=== PATIENT | female | born 2005 | race Caucasian/White ===

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

== ENCOUNTER 2024-10-10 09:56 | Outpatient (CLI) | payer OTHER, SELFPAY ==
--- NOTE | ~2024-10-10 | XR_ITS ---
XR abdomen/kub 1V 10/10/2024 10:27 INDICATION: Ureteral stone TECHNIQUE: KUB COMPARISON: No prior studies for comparison. FINDINGS: Bowel gas pattern is normal. There is no evidence of free air, mass, organomegaly, ascites or obstruction. There is a small right renal stone. There is also a calcification at the L2 level on the right, likely a UPJ stone. There are pelvic phleboliths. The bones appear intact. IMPRESSION: 1: Right nephrolithiasis. Reviewed, dictated and finalized at location B. [employer] IMPRESSION: 1: Right nephrolithiasis.
--- OUTSIDE RECORDS SUMMARY | 2024-10-10 10:10 | XMS_ITS | Clinical Summary ---
Author Organization [facility] [place] [address] Address [address] [place] [address] Care Team Providers Care Felt Hanger Name Role Phone Ric Caraballo MD Primary Care Provider Allergies No known active allergies Medications ondansetron ODT (ZOFRAN-ODT) 8 mg disintegrating tablet Take 1 tablet (8 mg total) by mouth every 8 (eight) hours as needed for nausea or vomiting 30 tablet 4 Active HYDROcodone-acetami nophen (NORCO) 5-325 mg per tabletIndications:P ain Take 1 tablet by mouth every 6 (six) hours as needed for pain 15 tablet 5 Active tamsulosin (FLOMAX) 0.4 mg extended release capsule Take 1 capsule (0.4 mg total) by mouth daily 7 capsule 5 Active Active Problems No known active problems Encounters Date Type Department Care Team Description 10/07/2024 10:10 AM TECHNOLOGY ENGINEER - 10/07/2024 1:55 PM [facility] Emergency [facility] Emergency Department [address] [place] [address] Jovan Espana MD Ureterolithiasis (Primary Dx) Discharge Disposition: Discharge to home or self care from Last 3 Months Social History Tobacco Use Types Packs/Day Years Used Date Smoking Tobacco: Never Assessed Personal Safety Answer Date Recorded Have you ever been in or are you currently in a harmful physical or emotional relationship or is someone making you feel afraid or unsafe? Denies 10/07/2024 Comments No Sex and Gender Information Value Date Recorded Sex Assigned at Not on file Legal Sex Female 7:15 PM TECHNOLOGY ENGINEER Gender Identity Not on file Sexual Orientation Not on file Obstetrics History Last Filed Vital Signs Vital Sign Reading Time Taken Comments Blood Pressure 126/65 10/07/2024 1:45 PM TECHNOLOGY ENGINEER Pulse 89 10/07/2024 9:09 AM TECHNOLOGY ENGINEER Temperature 36.1 C (96.9 F) 10/07/2024 9:09 AM TECHNOLOGY ENGINEER Respiratory Rate 16 10/07/2024 1:45 PM TECHNOLOGY ENGINEER Oxygen Saturation 100% 10/07/2024 9:09 AM TECHNOLOGY ENGINEER Inhaled Oxygen Concentration - - Weight 90.7 kg (200 lb) 10/07/2024 9:09 AM TECHNOLOGY ENGINEER Height 165.1 cm (5' 5 ) 10/07/2024 9:09 AM TECHNOLOGY ENGINEER Body Mass Index 33.28 10/07/2024 9:09 AM TECHNOLOGY ENGINEER Plan of Treatment Health Maintenance Due Date Last Done Comments Depression Screening 2004 Hepatitis C Screening 2004 DTaP/Tdap/Td Vaccine (6 - Tdap) 2015 01/09/2010, 12/17/2005, 2004, Additional history exists HPV Vaccines (2 - 2-dose series) 08/17/2019 02/15/2019 Meningococcal B Vaccine (1 of 2 - Standard) 2020 Regular Well Visit/Exam 18-64 2022 Covid-19 Vaccine ( - season) 2024 10/24/2020 Influenza Vaccine (#1) 2024 Hepatitis B Screening Completed 2004 , 2004, 2004, Additional history exists Pneumococcal vaccine <65 Completed 005, 2004, 2004, Additional history exists Varicella Vaccines Completed 01/09/2010, 05/18/2005 Meningococcal Vaccine Aged Out No radha arlen eligible based on patient's age to complete this topic Procedures Procedure Name Priority Date/Time Associated Diagnosis Comments CT KUB STONE WO CONTRAST ED 10/07/2024 12:16 PM TECHNOLOGY ENGINEER EGFR STAT 10/07/2024 11:14 AM TECHNOLOGY ENGINEER DIFFERENTIAL AUTO STAT 10/07/2024 11: 14 AM TECHNOLOGY ENGINEER LIPASE STAT 10/07/2024 11:14 AM TECHNOLOGY ENGINEER COMPREHENSIVE METABOLIC PANEL STAT 10/07/2024 11:14 AM TECHNOLOGY ENGINEER CBC WITH AUTO DIFFERENTIAL STAT 10/07/2024 11:14 AM TECHNOLOGY ENGINEER POCT HCG, URINE Routine 10/07/2024 11:10 AM TECHNOLOGY ENGINEER URINALYSIS, MICROSCOPIC ONLY STAT 10/07/2024 11:08 AM TECHNOLOGY ENGINEER URINALYSIS AND REFLEX TO MICROSCOPIC AND CULTURE STAT 10/07/2024 11:08 AM TECHNOLOGY ENGINEER from Last 3 Months Results * CT KUB Stone WO Contrast (10/07/2024 12:16 PM TECHNOLOGY ENGINEER) Anatomical Region Laterality Modality Abdomen N/A Computed Tomogra phy 10/07/2024 1:06 PM TECHNOLOGY ENGINEER Narrative 10/07/2024 1:11 PM TECHNOLOGY ENGINEER EXAM DESCRIPTION: CT KUB STONE WO CONTRAST REASON FOR STUDY: Urolithiasis, symptomatic Right flank pain and difficulty urinating started this morning, hx of stones. TECHNIQUE: CT scan of the abdomen and pelvis performed without intravenous and without oral contrast using helical scanning technique. Reconstructed coronal and sagittal MPR images reviewed. All images stored on PACS. Automated exposure control was used as a dose optimization technique for this examination. COMPARISON: 03/08/2023, 04/07/2020 FINDINGS: The sensitivity for detection of visceral lesions is diminished without the use of intravenous contrast. LOWER CHEST: Mild scattered subsegmental atelectasis. No pleural effusion. Imaged portions of the heart and esophagus are within normal limits. LIVER: Normal size. No identified cystic or solid masses. GALLBLADDER: Normal. BILE DUCTS: No intrahepatic or extrahepatic ductal dilatation. SPLEEN: Normal size. No focal lesions. PANCREAS: No identified cystic or solid masses. No significant calcifications. No adjacent inflammation or peripancreatic fluid collections. Pancreatic duct not dilated. ADRENALS: Normal. KIDNEYS/URINARY TRACT: No identified significant cystic or solid masses. Mild right hydroureteronephrosis with a 3 mm calculus in the proximal right ureter, positioned just distal to the ureteropelvic junction. There is a nonobstructive calculus in the upper pole of the left kidney measuring 3 mm. There is mild right perinephric and proximal right periureteral fat stranding due to increased intrarenal pressures and recent calculus passage. The urinary bladder is normal. GI: The stomach is normal. The small bowel and colon are normal in course and caliber with no evidence of obstruction or inflammation. The appendix is normal. PERITONEUM: No ascites or free air. Lymphadenopathy. RETROPERITONEUM: No mass or adenopathy. REPRODUCTIVE: No significant abnormality. VASCULATURE: No abdominal aortic aneurysm. MUSCULOSKELETAL: No acute fractures or aggressive osseous lesions. IMPRESSION: 1. Mild right hydroureteronephrosis with a 3 mm calculus in the proximal right ureter, positioned just distal to the ureteropelvic junction. 2. Nonobstructive calculus in the upper pole of the left kidney measuring 3 mm. THIS IS AN ELECTRONICALLY VERIFIED FINAL REPORT 10/07/2024 1:11 PM - Electronically signed by Fide Segal M.D. AT: AT Report ID: [id number] Reading Location: [id number] Procedure Note Fide Segal MD - 10/07/2024 EXAM DESCRIPTION: CT KUB STONE WO CONTRAST REASON FOR STUDY: Urolithiasis, symptomatic Right flank pain and difficulty urinating started this morning, hx ofstones. TECHNIQUE: CT scan of the abdomen and pelvis performed without intravenousand without oral contrast using helical scanning technique. Reconstructed coronal and sagittal MPR images reviewed. All images stored on PACS.Automated exposure control was used as a dose optimization technique for this examination. COMPARISON: 03/08/2023, 04/07/2020 FINDINGS: The sensitivity for detection of visceral lesions is diminished withoutthe use of intravenous contrast. LOWER CHEST: Mild scattered subsegmental atelectasis. No pleuraleffusion. Imaged portions of the heart and esophagus are within normal limits. LIVER: Normal size. No identified cystic or solid masses. GALLBLADDER: Normal. BILE DUCTS: No intrahepatic or extrahepatic ductal dilatation. SPLEEN: Normal size. No focal lesions. PANCREAS: No identified cystic or solid masses. No significant calcifications. No adjacent inflammation or peripancreatic fluidcollections. Pancreatic duct not dilated. ADRENALS: Normal. KIDNEYS/URINARY TRACT: No identified significant cystic or solid masses. Mild right hydroureteronephrosis with a 3 mm calculus in the proximalright ureter, positioned just distal to the ureteropelvic junction. There is a nonobstructive calculus in the upper pole of the left kidney measuring 3mm. There is mild right perinephric and proximal right periureteral fatstranding due to increased intrarenal pressures and recent calculus passage. The urinary bladder is normal. GI: The stomach is normal. The small bowel and colon are normal incourse and caliber with no evidence of obstruction or inflammation. The appendixis normal. PERITONEUM: No ascites or free air. Lymphadenopathy. RETROPERITONEUM: No mass or adenopathy. REPRODUCTIVE: No significant abnormality. VASCULATURE: No abdominal aortic aneurysm. MUSCULOSKELETAL: No acute fractures or aggressive osseous lesions. IMPRESSION: 1. Mild right hydroureteronephrosis with a 3 mm calculus in the proximal right ureter, positioned just distal to the ureteropelvic junction. 2. Nonobstructive calculus in the upper pole of the left kidney measuring3 mm. THIS IS AN ELECTRONICALLY VERIFIED FINAL REPORT 10/07/2024 1:11 PM - Electronically signed by Fide Segal M.D. AT: AT Report ID: [id number] Reading Location: [place] [address] Jovan Espana MD [facility] [place] CT PROCEDURES Final Result * eGFR (10/07/2024 11:14 AM TECHNOLOGY ENGINEER) eGFR >90 >=60 mL/min/1. 73 m2 Comment: Interpretive Data Reference Interval Normal >/= 90 mL/min/1.73m2 Mildly decreased* 60 - 89 mL/min/1.73m2 Mildly to moderately decreased 45 - 59 mL/min/1.73m2 Moderately to severely decreased 30 - 44 mL/min/1.73m2 Severely decreased 15 - 29 mL/min/1.73m2 Kidney Failure < 15 mL/min/1.73m2 *Relative to young adult level Estimated glomerular filtration rate is determined by the 2020 CKD-EPI equation recommended by the National Kidney Foundation (A Unifying Approach to GFR Estimation: Recommendations of the NKF-ASK Task Force on Reassessing the Inclusion of Race in Diagnosing Kidney Disease, JASN 2020). The CKD-EPI equation should not be used for patients with unstable renal function and has not been validated in children and those over 70. Current interpretive data was last reviewed 2021. Blood 10/07/2024 11:1 4 AM TECHNOLOGY ENGINEER 10/07/2024 11:17 AM TECHNOLOGY ENGINEER us Boris Doan MD LAB BLOOD ORDERABLE S Final Result [facility] ([place]) 1 [facility] [place] [address] * (ABNORMAL) Differential, auto (10/07/2024 11:14 AM TECHNOLOGY ENGINEER) Neutrophil abs 12.5(H) 1.5 - 6.5 K/cumm Imm gran abs 0.1 0.0 - 0.1 K/cumm [facility] ([place]) Lymphocyte abs 1.0 0.8 - 3.3 K/cumm [facility] ([place]) Monocyte abs 0.4 0.2 - 0.8 K/cumm [facility] ([place]) Eosinophil abs 0.0 0.0 - 0.5 K/cumm [facility] ([place]) Basophil abs 0.0 0.0 - 0.1 K/cumm [facility] ([place]) Neutrophil pct 89.2 % [facility] ([place]) Comment: Interpretive Data Percent cell count reference ranges are not reported, since discordance with absolute values may lead to misinterpretation of CBC data. Current Interpretive Data was last revised on 2017. Imm gran pct 0.4 % [facility] ([place]) Comment: Interpretive Data Percent cell count reference ranges are not reported, since discordance with absolute values may lead to misinterpretation of CBC data. Current Interpretive Data was last revised on 2017. Lymphocyte pct 7.2 % [facility] ([place]) Comment: Interpretive Data Percent cell count reference ranges are not reported, since discordance with absolute values may lead to misinterpretation of CBC data. Current Interpretive Data was last revised on 2017. Monocyte pct 2.8 % [facility] ([place]) Comment: Interpretive Data Percent cell count reference ranges are not reported, since discordance with absolute values may lead to misinterpretation of CBC data. Current Interpretive Data was last revised on 2017. Eosinophil pct 0.1 % [facility] ([place]) Comment: Interpretive Data Percent cell count reference ranges are not reported, since discordance with absolute values may lead to misinterpretation of CBC data. Current Interpretive Data was last revised on 2017. Basophil pct 0.3 % [facility] ([place]) Comment: Interpretive Data Percent cell count reference ranges are not reported, since discordance with absolute values may lead to misinterpretation of CBC data. Current Interpretive Data was last revised on 2017. Blood 10/07/2024 11:1 4 AM TECHNOLOGY ENGINEER 10/07/2024 11:17 AM TECHNOLOGY ENGINEER us Boris Doan MD LAB BLOOD ORDERABLE S Final Result [facility] ([place]) 1 [facility] [place] [address] * (ABNORMAL) CBC with auto differential (10/07/2024 11:14 AM TECHNOLOGY ENGINEER) WBC 14.0(H) 3.8 - 9.9 K/cumm Hgb 11.0(L) 11.9 - 15.5 g/dL [facility] ([place]) Hct 35.8 35.6 - 45.5 % [facility] ([place]) Plt 334 150 - 400 K/cumm [facility] ([place]) MPV 11.0 9.1 - 12.3 fL [facility] ([place]) RBC 4.55 3.90 - 5.20 M/cumm [facility] ([place]) MCV 78.7(L) 81.3 - 96.4 fL [facility] ([place]) MCH 24.2(L) 27.1 - 33.3 pg [facility] ([place]) MCHC 30.7(L) 32.3 - 35.7 g/dL [facility] RDW CV 16.4(H) 11.1 - 14.9 % [facility] RDW SD 47.0 35.7 - 48.1 fL [facility] ([place]) NRBC abs 0.00 0.00 - 0.01 K/cumm [facility] Blood (Blood, Venous) 10/07/2024 11:14 AM TECHNOLOGY ENGINEER 10/07/2024 11:17 AM TECHNOLOGY ENGINEER Jovan Espana MD LAB BLOOD ORDERABLES Final Res ult [facility] ([place]) 1 [facility] [place] [address] * Lipase (10/07/2024 11:14 AM TECHNOLOGY ENGINEER) [facility] Lipase 13 10 - 99 Units/L Blood (Blood, Venous) 10/07/2024 11:14 AM TECHNOLOGY ENGINEER 10/07/2024 11:17 AM TECHNOLOGY ENGINEER Jovan Espana MD LAB BLOOD ORDERABLES Final Res ult Performing Organization Address City/[facility] Co de Phone Number [facility] ([place]) 1 [facility] [place] [address] * Comprehensive metabolic panel (10/07/2024 11:14 AM TECHNOLOGY ENGINEER) Pathologist [facility] Sodium 137 135 - 145 mmol/L Potassium, pl 4.2 3.3 - 4.9 mmol/L [facility] ([place]) Chloride 103 97 - 110 mmol/L [facility] ([place]) CO2 24 22 - 32 mmol/L [facility]) Anion gap 10 2 - 15 mmol/L [facility] ([place]) BUN 9 6 - 25 mg/dL [facility] ([place]) Creatinine 0.81 0.60 - 1.10 mg/dL [facility] ([place]) Glucose 101 70 - 199 mg/dL [facility] ([place]) Comment: Interpretive Data Fasting glucose >/= 126 mg/dl is diagnostic for diabetes. Fasting is defined as no caloric intake for at least 8 hours. Fasting glucose between 100 mg/dl to 125 mg/dl is diagnostic of prediabetes. In a patient with classic symptoms of hyperglycemia or hyperglycemic crisis, a random glucose >/= 200 mg/dl is diagnostic for diabetes. In the absence of unequivocal hyperglycemia, results should be confirmed by repeat testing. The classification and Diagnosis of Diabetes Diabetes Care 2021; 46: S19-S40. Current interpretive data was last revised 2022. Calcium 9.3 8.5 - 10.3 mg/dL [facility] ([place]) Bilirubin, total 0.3 0.1 - 1.2 mg/dL [facility] ([place]) Protein, pl 7.9 6.5 - 8.5 g/dL [facility] ([place]) Albumin 4.1 3.5 - 5.0 g/dL [facility] ([place]) Alk phos 87 40 - 130 Units/L [facility] ([place]) ALT 24 7 - 45 Units/L [facility] ([place]) AST 18 10 - 45 Units/L [facility] ([place]) Blood (Blood, Venous) 10/07/2024 11:14 AM TECHNOLOGY ENGINEER 10/07/2024 11:17 AM TECHNOLOGY ENGINEER Jovan Espana MD LAB BLOOD ORDERABLES Final Res ult [facility] Department [place] [address] * POCT hCG, urine (10/07/2024 11:10 AM TECHNOLOGY ENGINEER) HCG, ur, POC Negative Negative Lot Number [id number] QC Backgroud Clear Acceptable QC Control Line Acceptable Urine 10/07/2024 11:1 0 AM TECHNOLOGY ENGINEER Jovan Espana MD POINT OF CARE TEST ORDERABLES Final Result * (ABNORMAL) Urinalysis reflex to microscopic and culture Urine (10/07/2024 11:08 AM TECHNOLOGY ENGINEER) Color, ur Yellow Yellow Clarity, ur Clear Clear [facility] ([place]) Specific gravity, ur 1.028 1.003 - 1.030 [facility] ([place]) pH, urine 5.5 [facility] ([place]) Comment: Interpretive Data U rine pH is affected by diet, medications, systemic acid-base disturbances, and renal tubular function. pH may affect urinary stone formation. For example, urine pH below 6.0 may help reduce the tendency for calcium phosphate stones and pH greater than 6.0 may reduce the tendency for uric acid stone formation. Source: [facility] [place] Current Interpretive Data was last revised on 2017 Protein, ur ql 1+(A) Negative [facility] ([place]) Glucose, ur ql Negative Negative [facility] ([place]) Ketones, ur Negative Negative [facility] ([place]) Bilirubin, ur Negative Negative [facility] ([place]) Blood, ur 3+(A) Negative [facility] ([place]) Urobilinogen, ur <2.0 <2.0 mg/dL [facility] ([place]) Nitrite, ur Negative Negative [facility] ([place]) Leukocyte esterase, ur Negative Negative [facility] ([place]) UA reflex comment Reflex to microscopic UA will be performed. [facility] ([place]) Urine 10/07/2024 11:0 8 AM TECHNOLOGY ENGINEER 10/07/2024 11:11 AM TECHNOLOGY ENGINEER us Jovan Espana MD LAB MICROBIOLOGY - GENERAL ORD ERABLES Final Result [facility] ([place]) 1 [facility] Department [place] [address] * (ABNORMAL) Urinalysis, microscopic only (10/07/2024 11:08 AM TECHNOLOGY ENGINEER) WBC, ur 0-5 0 - 5 /HPF RBC, ur >50(A) 0 - 2 /HPF [facility] ([place]) Epithelial cells, squamous, ur 1-5 0 - 5 /HPF [facility] ([place]) Mucous, ur Present(A) [facility] ([place]) Culture Reflex Comment Reflex conditions for urine culture (WBC >10) not met. [facility] ([place]) Urine 10/07/2024 11:0 8 AM TECHNOLOGY ENGINEER 10/07/2024 11:11 AM TECHNOLOGY ENGINEER us Boris Doan MD LAB URINE ORDERABLE S Final Result [facility] ([place]) 1 [facility] [place] [address] from Last 3 Months Insurance [employer] OPEN ACCESS [employer]IG[employer] ACCESS CHOICE [place] CHOICE [place] Care Teams Felt Hanger Relationship Specialty Start Date End Date Ric Caraballo MD [address] [facility] [address] [place] [address] PCP - General Family Medicine 04/07/24
--- OUTSIDE RECORDS SUMMARY | 2024-10-10 10:10 | XMS_ITS | Clinical Summary ---
Author Organization [email or web address] [facility] Address [address] Attn: Epic Prelude ADT [place] [address] Care Team Providers Care Associate Curator Name Role Phone Rene Patel MD Primary Care Provider Social History Tobacco Use Types Packs/Day Years Used Date Smoking Tobacco: Never Assessed Comments Unknown Sex and Gender Information Value Date Recorded Sex Assigned at Not on file Legal Sex Female 3:58 AM FORENSIC TECHNICIAN Gender Identity Not on file Sexual Orientation Not on file Plan of Treatment Health Maintenance Due Date Last Done Comments CHLAMYDIA SCREENING (ANNUAL) 11-24 YEARS 2015 HPV VACCINES (1 - 3-dose series) 2019 DTAP/TDAP/TD VACCINES (1 - Tdap) 2023 HEPATITIS B VACCINES (1 of 3 - 19+ 3-dose series) 04/22 INFLUENZA VACCINE (#1) 2024 Care Teams Associate Curator Relationship Specialty [place] [address] [place] [id number] PCP - General 04
--- OUTSIDE RECORDS SUMMARY | 2024-10-10 10:10 | XMS_ITS | Encounter Summary ---
Author Organization [employer] Address [address] [place] [address] Care Team Providers Care Nub Card Tender Name Role Phone Rene Patel MD Primary Care Provider [phone] Encounter Details Date Type Department Care Team (Late st Contact Info) Description 2004 Outpatient Historical [facility] STVerna Ayers, BLANCHE [address] [place] [id number] Er, Authorized P NO ADDRESS ON FILE VIRAL ENTERITIS NOS (Primary Dx) Social History Tobacco Use Types Packs/Day Years Used Date Smoking Tobacco: Never Assessed Comments Unknown Sex and Gender Information Value Date Recorded Sex Assigned at Not on file Legal Sex Female 3:58 AM FULLER BRUSH WORKER Gender Identity Not on file Sexual Orientation Not on file documented as of this encounter Plan of Treatment Not on file documented as of this encounter Visit Diagnoses Diagnosis Intestinal infection due to other organism, not elsewhere classified- Primary documented in this encounter Care Teams Nub Card Tender Relationship Specialty [place] [address] [id number] PCP - General 04 documented as of this encounter
--- OUTSIDE RECORDS SUMMARY | 2024-10-10 10:10 | XMS_ITS | Referral Summary ---
Author Organization [facility] [address] Address [address] [place] [address] Care Team Providers Care Lead Coater Name Role Phone Ric Caraballo MD Primary Care Provider Encounters Date Type Department Care Team Description 10/07/2024 10:10 AM SUPERVISOR EDGING - 10/07/2024 1:55 PM SUPERVISOR EDGING Emergency [facility] Emergency Department 1 [place] [address] Jovan Espana MD Ureterolithiasis (Primary Dx) Discharge Disposition: Discharge to home or self care from Last 3 Months Allergies No known active allergies Medications ondansetron [...] Active Active Problems No known active problems Social History Tobacco Use Types Packs/Day Years [...] on file Legal Sex Female 7:15 PM SUPERVISOR EDGING Gender Identity Not on file Sexual Orientation Not on file Last Filed Vital Signs Vital Sign Reading Time Taken Comments Blood Pressure 126/65 10/07/2024 1:45 PM SUPERVISOR EDGING Pulse 89 10/07/2024 9:09 AM SUPERVISOR EDGING Temperature 36.1 C (96.9 F) 10/07/2024 9:09 AM SUPERVISOR EDGING Respiratory Rate 16 10/07/2024 1:45 PM SUPERVISOR EDGING Oxygen Saturation 100% 10/07/2024 9:09 AM SUPERVISOR EDGING Inhaled Oxygen Concentration - - Weight 90.7 kg (200 lb) 10/07/2024 9:09 AM SUPERVISOR EDGING Height 165.1 cm (5' 5 ) 10/07/2024 9:09 AM SUPERVISOR EDGING Body Mass Index 33.28 10/07/2024 9:09 AM SUPERVISOR EDGING Plan of Treatment Not on file Procedures Procedure Name Priority Date/Time Associated Diagnosis Comments CT KUB STONE WO CONTRAST ED 10/07/2024 12:16 PM SUPERVISOR EDGING EGFR STAT 10/07/2024 11:14 AM SUPERVISOR EDGING DIFFERENTIAL AUTO STAT 10/07/2024 11: 14 AM SUPERVISOR EDGING LIPASE STAT 10/07/2024 11:14 AM SUPERVISOR EDGING COMPREHENSIVE METABOLIC PANEL STAT 10/07/2024 11:14 AM SUPERVISOR EDGING CBC WITH AUTO DIFFERENTIAL STAT 10/07/2024 11:14 AM SUPERVISOR EDGING POCT HCG, URINE Routine 10/07/2024 11:10 AM SUPERVISOR EDGING URINALYSIS, MICROSCOPIC ONLY STAT 10/07/2024 11:08 AM SUPERVISOR EDGING URINALYSIS AND REFLEX TO MICROSCOPIC AND CULTURE STAT 10/07/2024 11:08 AM SUPERVISOR EDGING from Last 3 Months Results * CT KUB Stone WO Contrast (10/07/2024 12:16 PM SUPERVISOR EDGING) Anatomical Region Laterality Modality Abdomen N/A Computed Tomogra phy 10/07/2024 1:06 PM SUPERVISOR EDGING Narrative 10/07/2024 1:11 PM SUPERVISOR EDGING EXAM DESCRIPTION: CT KUB STONE WO CONTRAST [...] Fide Segal M.D. AT: AT Report ID: [id number] Reading Location: [id number] Procedure Note Fide Segal MD - 10/07/2024 [...] Fide Segal M.D. AT: AT Report ID: [id number] Reading Location: [place] [address] us Jovan Espana MD IMG CT PROCEDURES Final Result * eGFR (10/07/2024 11:14 AM SUPERVISOR EDGING) eGFR >90 >=60 mL/min/1. 73 m2 Comment: [...] reviewed 2021. Blood 10/07/2024 11:1 4 AM SUPERVISOR EDGING 10/07/2024 11:17 AM SUPERVISOR EDGING us Boris Doan MD LAB BLOOD ORDERABLE S Final Result [facility] [place]) 1 [facility] Department [place] [address] * (ABNORMAL) Differential, auto (10/07/2024 11:14 AM SUPERVISOR EDGING) Neutrophil abs 12.5(H) 1.5 - 6.5 K/cumm [...] on 2017. Blood 10/07/2024 11:1 4 AM SUPERVISOR EDGING 10/07/2024 11:17 AM SUPERVISOR EDGING us Boris Doan MD LAB BLOOD ORDERABLE S Final Result [facility] ([place]) 1 [facility] [employer] [place] [address] * (ABNORMAL) CBC with auto differential (10/07/2024 11:14 AM SUPERVISOR EDGING) WBC 14.0(H) 3.8 - 9.9 K/cumm Hgb 11.0(L) 11.9 - 15.5 g/dL [facility] ([place]) Hct 35.8 35.6 - 45.5 % [facility] ([place]) Plt 334 150 - 400 K/cumm [facility] ([place]) MPV 11.0 9.1 - 12.3 fL [facility] ([place]) RBC 4.55 3.90 - 5.20 M/cumm [facility] ([place]) MCV 78.7(L) 81.3 - 96.4 fL [facility] ([place]) MCH 24.2(L) 27.1 - 33.3 pg [facility] ([place]) MCHC 30.7(L) 32.3 - 35.7 g/dL [facility] ([place]) RDW CV 16.4(H) 11.1 - 14.9 % [facility] ([place]) RDW SD 47.0 35.7 - 48.1 fL [facility] ([place]) NRBC abs 0.00 0.00 - 0.01 K/cumm [facility] ([place]) Blood (Blood, Venous) 10/07/2024 11:14 AM SUPERVISOR EDGING 10/07/2024 11:17 AM SUPERVISOR EDGING us Jovan Espana MD LAB BLOOD ORDERABLES Final Res ult [facility] ([place]) 1 [facility] [employer] [place] [address] * Lipase (10/07/2024 11:14 AM SUPERVISOR EDGING) Lipase 13 10 - 99 Units/L Blood (Blood, Venous) 10/07/2024 11:14 AM SUPERVISOR EDGING 10/07/2024 11:17 AM SUPERVISOR EDGING us Jovan Espana MD LAB BLOOD ORDERABLES Final Res ult [facility] ([place]) 1 [facility] Department [place] [address] * Comprehensive metabolic panel (10/07/2024 11:14 AM SUPERVISOR EDGING) Sodium 137 135 - 145 mmol/L Potassium, pl 4.2 3.3 - 4.9 mmol/L [facility] ([place]) Chloride 103 97 - 110 mmol/L [facility] ([place]) CO2 24 22 - 32 mmol/L [facility] ([place]) Anion gap 10 2 - 15 mmol/L [facility] ([place]) BUN 9 6 - 25 mg/dL [facility] ([place]) Creatinine 0.81 0.60 - 1.10 mg/dL [facility] ([place]) Glucose 101 70 - 199 mg/dL [facility] ([place]) Comment: Interpretive Data Fasting glucose [...] classification and Diagnosis of Diabetes Diabetes Care 202; 46: S19-S40. Current interpretive data was last [...] ([place]) Blood (Blood, Venous) 10/07/2024 11:14 AM SUPERVISOR EDGING 10/07/2024 11:17 AM SUPERVISOR EDGING Jovan Espana MD LAB BLOOD ORDERABLES Final Res ult [facility] ([place]) 1 [facility] Department [place] [address] * POCT hCG, urine (10/07/2024 11:10 AM SUPERVISOR EDGING) HCG, ur, POC Negative Negative Lot Number [id number] QC Backgroud Clear Acceptable QC Control Line Acceptable Urine 10/07/2024 11:1 0 AM SUPERVISOR EDGING Jovan Espana MD POINT OF CARE TEST ORDERABLES Final Result * (ABNORMAL) Urinalysis reflex to microscopic and culture Urine (10/07/2024 11:08 AM SUPERVISOR EDGING) Color, ur Yellow Yellow Clarity, ur Clear Clear [facility] ([place]) Specific gravity, ur 1.028 1.003 - 1.030 [...] tendency for uric acid stone formation. Source: [facility] [employer] Current Interpretive Data was last revised on 2017 Protein, ur ql 1+(A) Negative [facility] ([place]) Glucose, ur ql Negative Negative [facility] ([place]) Ketones, ur Negative Negative [facility] ([place]) Bilirubin, ur Negative Negative [facility] ([place]) Blood, ur 3+(A) Negative [facility] ([place]) Urobilinogen, ur <2.0 <2.0 mg/dL [facility] ([place]) Nitrite, ur Negative Negative [facility] ([place]) Leukocyte esterase, ur Negative Negative [facility] ([place]) UA reflex comment Reflex to microscopic UA will be performed. [facility] ([place]) Urine 10/07/2024 11:0 8 AM SUPERVISOR EDGING 10/07/2024 11:11 AM SUPERVISOR EDGING us Jovan Espana MD LAB MICROBIOLOGY - GENERAL ORD ERABLES Final Result Performing Organization Address [facility] Co de Phone Number [facility] ([place]) 1 [facility] Department [place] [address] * (ABNORMAL) Urinalysis, microscopic only (10/07/2024 11:08 AM SUPERVISOR EDGING) WBC, ur 0-5 0 - 5 /HPF RBC, ur >50(A) 0 - 2 /HPF [facility] ([place]) Epithelial cells, squamous, ur 1-5 0 - 5 /HPF [facility] ([place]) Mucous, ur Present(A) [facility] ([place]) Culture Reflex Comment Reflex conditions for urine culture (WBC >10) not met. [facility] ([place]) Urine 10/07/2024 11:0 8 AM SUPERVISOR EDGING 10/07/2024 11:11 AM SUPERVISOR EDGING us Boris Doan MD LAB URINE ORDERABLE S Final Result Performing Organization Address [facility] de Phone Number [facility] ([place]) 1 [facility] [place] [address] from Last 3 Months Insurance [facility] OPEN ACCESS CIG[employer] ANTHEM ACCESS CHOICE [employer] [place] Care Teams Lead Coater Relationship Specialty Start Date End Date Ric Caraballo MD [address] [facility] [address] [place] [address] PCP - General Family Medicine 04/07/24
[2024-10-10 11:22] LABS: Alanine Aminotransferase 31 U/L (6-35); Albumin Level 4.2 g/dL (3.5-5.1); Alkaline Phosphatase 80 U/L (38-126); Anion Gap 10 mmol/L (4-12); Aspartate Amino Transferase 29 U/L (14-36); Bilirubin,Total 0.4 mg/dL (0.2-1.3); Blood Urea Nitrogen 9 mg/dL (7-17); Calcium 9.2 mg/dL (8.4-10.2); Carbon Dioxide 28 mmol/L (22-30); Chloride 102 mmol/L (98-107); Estimated Glomerular Filt Rate > 60; Glucose 87 mg/dL (65-110); Potassium 3.9 mmol/L (3.4-5.0); Sodium 140 mmol/L (137-145)
== END 2024-10-10 09:57 | disposition home or self-care (01) ==
LOC: ANHLAB 09:58
PROVIDERS: PCP Family Medicine; Visit Provider Family Medicine
DX: N20.0 Calculus of kidney (principal)
CPT/HCPCS: 36415; 74018; 80053

== ENCOUNTER 2024-10-15 13:17 | Outpatient (CLI) | payer OTHER, SELFPAY ==
--- NOTE | ~2024-10-15 | XR_ITS ---
Exam: Abdomen 1V HISTORY: Rt ureteral stone COMPARISON: 10/10/2024 TECHNIQUE: Supine images of the abdomen FINDINGS: Bowel gas pattern is non-obstructive. There is no free air or deep sulci. Extensive fecal stasis overlies in the right upper quadrant precluding adequate visualization of the right kidney and proximal right ureter No pathologic calcifications are seen. Lung bases are unremarkable. Bones and soft tissues are unremarkable. IMPRESSION: Nonspecific, nonobstructive bowel gas pattern. Moderate fecal stasis, precluding adequate evaluation of the right kidney and proximal right ureter. Reviewed, dictated and finalized at location A. 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 Moderate fecal stasis, precluding adequate evaluation of the right kidney and p roximal right ureter.
--- OUTSIDE RECORDS SUMMARY | 2024-10-15 15:08 | XMS_ITS | Encounter Summary ---
Author Organization [employer] Address [address] [place] [address] Care Team Providers Care Production Coordinator Name Role Phone Rene Patel MD Primary Care Provider [phone] Encounter Details Date Type Department Care Team (Late st Contact Info) Description 2004 Outpatient Historical [facility] STVerna Ayers, BLANCHE [address] [place] [id number] Er, Authorized P NO ADDRESS ON FILE VIRAL ENTERITIS NOS (Primary Dx) Social History Tobacco Use Types Packs/Day Years Used Date Smoking Tobacco: Never Assessed Comments Unknown Sex and Gender Information Value Date Recorded Sex Assigned at Not on file Legal Sex Female 3:58 AM LOADER MAGAZINE GRINDER Gender Identity Not on file Sexual Orientation Not on file documented as of this encounter Plan of Treatment Not on file documented as of this encounter Visit Diagnoses Diagnosis Intestinal infection due to other organism, not elsewhere classified- Primary documented in this encounter Care Teams Production Coordinator Relationship Specialty [place] [address] [id number] PCP - General 04 documented as of this encounter
--- OUTSIDE RECORDS SUMMARY | 2024-10-15 15:08 | XMS_ITS | Clinical Summary ---
Author Organization [facility] [address] Address [address] [place] [address] Care Team Providers Care Photographic Technician Name Role Phone Ric Caraballo MD Primary [...] Department Care Team Description 10/07/2024 10:10 AM UTILITY WORKER DRIVER - 10/07/2024 1:[address] [facility] Emergency [facility] Emergency Department [address] [place] [address] Jovan Espana MD Ureterolithiasis (Primary Dx) Discharge [...] on file Legal Sex Female 7:15 PM UTILITY WORKER DRIVER Gender Identity Not on file Sexual Orientation Not on file Obstetrics History Last Filed Vital Signs Vital Sign Reading Time Taken Comments Blood Pressure 126/65 10/07/2024 1:45 PM UTILITY WORKER DRIVER Pulse 89 10/07/2024 9:09 AM UTILITY WORKER DRIVER Temperature 36.1 C (96.9 F) 10/07/2024 9:09 AM UTILITY WORKER DRIVER Respiratory Rate 16 10/07/2024 1:45 PM UTILITY WORKER DRIVER Oxygen Saturation 100% 10/07/2024 9:09 AM UTILITY WORKER DRIVER Inhaled Oxygen Concentration - - Weight 90.7 kg (200 lb) 10/07/2024 9:09 AM UTILITY WORKER DRIVER Height 165.1 cm (5' 5 ) 10/07/2024 9:09 AM UTILITY WORKER DRIVER Body Mass Index 33.28 10/07/2024 9:09 AM UTILITY WORKER DRIVER Plan of Treatment Health Maintenance Due Date [...] STONE WO CONTRAST ED 10/07/2024 12:16 PM UTILITY WORKER DRIVER EGFR STAT 10/07/2024 11:14 AM UTILITY WORKER DRIVER DIFFERENTIAL AUTO STAT 10/07/2024 11: 14 AM UTILITY WORKER DRIVER LIPASE STAT 10/07/2024 11:14 AM UTILITY WORKER DRIVER COMPREHENSIVE METABOLIC PANEL STAT 10/07/2024 11:14 AM UTILITY WORKER DRIVER CBC WITH AUTO DIFFERENTIAL STAT 10/07/2024 11:14 AM UTILITY WORKER DRIVER POCT HCG, URINE Routine 10/07/2024 11:10 AM UTILITY WORKER DRIVER URINALYSIS, MICROSCOPIC ONLY STAT 10/07/2024 11:08 AM UTILITY WORKER DRIVER URINALYSIS AND REFLEX TO MICROSCOPIC AND CULTURE STAT 10/07/2024 11:08 AM UTILITY WORKER DRIVER from Last 3 Months Results * CT KUB Stone WO Contrast (10/07/2024 12:16 PM UTILITY WORKER DRIVER) Anatomical Region Laterality Modality Abdomen N/A Computed Tomogra phy 10/07/2024 1:06 PM UTILITY WORKER DRIVER Narrative 10/07/2024 1:11 PM UTILITY WORKER DRIVER EXAM DESCRIPTION: CT KUB STONE WO CONTRAST [...] Fide Segal M.D. AT: AT Report ID: [id number] Reading Location: [id number] Procedure Note Fide Segal MD - 10/07/2024 [...] Fide Segal M.D. AT: AT Report ID: [id number] Reading Location: [place] [address] Jovan Espaan MD [facility] [place] PROCEDURES Final Result * eGFR (10/07/2024 11:14 AM UTILITY WORKER DRIVER) eGFR >90 >=60 mL/min/1. 73 m2 Comment: [...] reviewed 2021. Blood 10/07/2024 11:1 4 AM UTILITY WORKER DRIVER 10/07/2024 11:17 AM UTILITY WORKER DRIVER us Boris Doan MD LAB BLOOD ORDERABLE S Final Result [facility] ([place]) 1 [facility] Department [place] [address] * (ABNORMAL) Differential, auto (10/07/2024 11:14 AM UTILITY WORKER DRIVER) Neutrophil abs 12.5(H) 1.5 - 6.5 K/cumm [...] on 2017. Blood 10/07/2024 11:1 4 AM UTILITY WORKER DRIVER 10/07/2024 11:17 AM UTILITY WORKER DRIVER us Boris Doan MD LAB BLOOD ORDERABLE S Final Result [facility] ([place]) 1 [facility] Department [place] [address] * (ABNORMAL) CBC with auto differential (10/07/2024 11:14 AM UTILITY WORKER DRIVER) WBC 14.0(H) 3.8 - 9.9 K/cumm Hgb [...] ([place]) MCHC 30.7(L) 32.3 - 35.7 g/dL [facility] ([place]) RDW CV 16.4(H) 11.1 - 14.9 % [facility] ([place]) RDW SD 47.0 35.7 - 48.1 fL [facility] ([place]) NRBC abs 0.00 0.00 - 0.01 K/cumm [facility] ([place]) Blood (Blood, Venous) 10/07/2024 11:14 AM UTILITY WORKER DRIVER 10/07/2024 11:17 AM UTILITY WORKER DRIVER Jovan Espana MD LAB BLOOD ORDERABLES Final Res ult [facility] ([place]) 1 [facility] [place] [address] * Lipase (10/07/2024 11:14 AM UTILITY WORKER DRIVER) [facility] Lipase 13 10 - 99 Units/L Blood (Blood, Venous) 10/07/2024 11:14 AM UTILITY WORKER DRIVER 10/07/2024 11:17 AM UTILITY WORKER DRIVER Jovan Espana MD LAB BLOOD ORDERABLES Final Res ult Performing Organization Address [facility] Co de Phone Number [facility] ([place]) 1 [facility] [place] [address] * Comprehensive metabolic panel (10/07/2024 11:14 AM UTILITY WORKER DRIVER) Pathologist [facility] Sodium 137 135 - 145 mmol/L Potassium, pl 4.2 3.3 - 4.9 mmol/L [facility] ([place]) Chloride 103 97 - 110 mmol/L [facility] ([place]) CO2 24 22 - 32 mmol/L [facility] ([place]) Anion gap 10 2 - 15 mmol/L [facility] ([place]) BUN 9 6 - 25 mg/dL [facility] ([place]) Creatinine 0.81 0.60 - 1.10 mg/dL [facility] ([place]) Glucose 101 70 - 199 mg/dL [facility] ([place]) Comment: Interpretive Data Fasting [...] ([place]) Blood (Blood, Venous) 10/07/2024 11:14 AM UTILITY WORKER DRIVER 10/07/2024 11:17 AM UTILITY WORKER DRIVER Jovan Espana MD LAB BLOOD ORDERABLES Final Res ult [facility] ([place]) 1 [facility] Department [place] [address] * POCT hCG, urine (10/07/2024 11:10 AM UTILITY WORKER DRIVER) HCG, ur, POC Negative Negative Lot Number [id number] QC Backgroud Clear Acceptable QC Control Line Acceptable Urine 10/07/2024 11:1 0 AM UTILITY WORKER DRIVER Jovan Espana MD POINT OF CARE TEST ORDERABLES Final Result * (ABNORMAL) Urinalysis reflex to microscopic and culture Urine (10/07/2024 11:08 AM UTILITY WORKER DRIVER) Color, ur Yellow Yellow Clarity, ur Clear [...] tendency for uric acid stone formation. Source: [facility] Current Interpretive Data was last revised on [...] Reflex to microscopic UA will be performed. [facility] ([place]) Urine 10/07/2024 11:0 8 AM UTILITY WORKER DRIVER 10/07/2024 11:11 AM UTILITY WORKER DRIVER us Jovan Espana MD LAB MICROBIOLOGY - GENERAL ORD ERABLES Final Result [facility] ([place]) 1 [facility] Department [place] [address] * (ABNORMAL) Urinalysis, microscopic only (10/07/2024 11:08 AM UTILITY WORKER DRIVER) WBC, ur 0-5 0 - 5 /HPF RBC, ur >50(A) 0 - 2 /HPF [facility] ([place]) Epithelial cells, squamous, ur 1-5 0 - 5 /HPF [facility] ([place]) Mucous, ur Present(A) [facility] ([place]) Culture Reflex Comment Reflex conditions for urine culture (WBC >10) not met. [facility] ([place]) Urine 10/07/2024 11:0 8 AM UTILITY WORKER DRIVER 10/07/2024 11:11 AM UTILITY WORKER DRIVER us Boris Doan MD LAB URINE ORDERABLE S Final Result [facility] ([place]) 1 [facility] [place] [address] from Last 3 Months Insurance [employer] OPEN ACCESS CIGNA [employer] ACCESS CHOICE BLUE ACCESS CHOICE [place] Care Teams Photographic Technician Relationship Specialty Start Date End Date Ric Caraballo MD [address] [facility] [address] [place] [address] PCP - General Family Medicine 04/07/24
--- OUTSIDE RECORDS SUMMARY | 2024-10-15 15:08 | XMS_ITS | Clinical Summary ---
Author Organization [employer] [facility] Address [address] Attn: Epic Prelude ADT [place] [address] Care Team Providers Care Closing Machine Operator Name Role Phone Rene Patel MD Primary Care Provider [phone] Social History Tobacco Use Types Packs/Day Years Used Date Smoking Tobacco: Never Assessed Comments Unknown Sex and Gender Information Value Date Recorded Sex Assigned at Not on file Legal Sex Female 3:58 AM BUSINESS SALES CONSULTANT Gender Identity Not on file Sexual Orientation Not on file Plan of Treatment Health Maintenance Due Date Last Done Comments CHLAMYDIA SCREENING (ANNUAL) 11-24 YEARS 2015 HPV VACCINES (1 - 3-dose series) 2019 DTAP/TDAP/TD VACCINES (1 - Tdap) 2023 HEPATITIS B VACCINES (1 of 3 - 19+ 3-dose series) 04/22 INFLUENZA VACCINE (#1) 2024 Care Teams Closing Machine Operator Relationship Specialty [place] [address] [address] [place] [address] PCP - General 04
--- OUTSIDE RECORDS SUMMARY | 2024-10-15 15:08 | XMS_ITS | Referral Summary ---
Author Organization [facility] [place] [address] Address [address] [place] [address] Care Team Providers Care Leather Finisher Name Role Phone Ric Caraballo MD Primary Care Provider Encounters Date Type Department Care Team Description 10/07/2024 10:10 AM MERCHANDISING COORDINATOR - 10/07/2024 1:55 PM MERCHANDISING COORDINATOR Emergency [facility] Emergency Department [address] [place] [address] Jovan Espana MD Ureterolithiasis (Primary Dx) Discharge [...] on file Legal Sex Female 7:15 PM MERCHANDISING COORDINATOR Gender Identity Not on file Sexual Orientation Not on file Last Filed Vital Signs Vital Sign Reading Time Taken Comments Blood Pressure 126/65 10/07/2024 1:45 PM MERCHANDISING COORDINATOR Pulse 89 10/07/2024 9:09 AM MERCHANDISING COORDINATOR Temperature 36.1 C (96.9 F) 10/07/2024 9:09 AM MERCHANDISING COORDINATOR Respiratory Rate 16 10/07/2024 1:45 PM MERCHANDISING COORDINATOR Oxygen Saturation 100% 10/07/2024 9:09 AM MERCHANDISING COORDINATOR Inhaled Oxygen Concentration - - Weight 90.7 kg (200 lb) 10/07/2024 9:09 AM MERCHANDISING COORDINATOR Height 165.1 cm (5' 5 ) 10/07/2024 9:09 AM MERCHANDISING COORDINATOR Body Mass Index 33.28 10/07/2024 9:09 AM MERCHANDISING COORDINATOR Plan of Treatment Not on file Procedures Procedure Name Priority Date/Time Associated Diagnosis Comments CT KUB STONE WO CONTRAST ED 10/07/2024 12:16 PM MERCHANDISING COORDINATOR EGFR STAT 10/07/2024 11:14 AM MERCHANDISING COORDINATOR DIFFERENTIAL AUTO STAT 10/07/2024 11: 14 AM MERCHANDISING COORDINATOR LIPASE STAT 10/07/2024 11:14 AM MERCHANDISING COORDINATOR COMPREHENSIVE METABOLIC PANEL STAT 10/07/2024 11:14 AM MERCHANDISING COORDINATOR CBC WITH AUTO DIFFERENTIAL STAT 10/07/2024 11:14 AM MERCHANDISING COORDINATOR POCT HCG, URINE Routine 10/07/2024 11:10 AM MERCHANDISING COORDINATOR URINALYSIS, MICROSCOPIC ONLY STAT 10/07/2024 11:08 AM MERCHANDISING COORDINATOR URINALYSIS AND REFLEX TO MICROSCOPIC AND CULTURE STAT 10/07/2024 11:08 AM MERCHANDISING COORDINATOR from Last 3 Months Results * CT KUB Stone WO Contrast (10/07/2024 12:16 PM MERCHANDISING COORDINATOR) Anatomical Region Laterality Modality Abdomen N/A Computed Tomogra phy 10/07/2024 1:06 PM MERCHANDISING COORDINATOR Narrative 10/07/2024 1:11 PM MERCHANDISING COORDINATOR EXAM DESCRIPTION: CT KUB STONE WO CONTRAST [...] Fide Segal M.D. AT: AT Report ID: [id number] Reading Location: [id number] Procedure Note Fide Segal MD - 10/07/2024 [...] Fide Segal M.D. AT: AT Report ID: [id number] Reading Location: [place] [address] us Jovan Espana MD IMG CT PROCEDURES Final Result * eGFR (10/07/2024 11:14 AM MERCHANDISING COORDINATOR) eGFR >90 >=60 mL/min/1. 73 m2 Comment: [...] reviewed 2021. Blood 10/07/2024 11:1 4 AM MERCHANDISING COORDINATOR 10/07/2024 11:17 AM MERCHANDISING COORDINATOR us Boris Doan MD LAB BLOOD ORDERABLE S Final Result [facility] [place]) 1 [facility] [place] [address] * (ABNORMAL) Differential, auto (10/07/2024 11:14 AM MERCHANDISING COORDINATOR) Neutrophil abs 12.5(H) 1.5 - 6.5 K/cumm [...] on 2017. Blood 10/07/2024 11:1 4 AM MERCHANDISING COORDINATOR 10/07/2024 11:17 AM MERCHANDISING COORDINATOR us Boris Doan MD LAB BLOOD ORDERABLE S Final Result [facility] ([place]) 1 [facility] [employer] [place] [place] [address] * (ABNORMAL) CBC with auto differential (10/07/2024 11:14 AM MERCHANDISING COORDINATOR) WBC 14.0(H) 3.8 - 9.9 K/cumm Hgb [...] ([place]) Blood (Blood, Venous) 10/07/2024 11:14 AM MERCHANDISING COORDINATOR 10/07/2024 11:17 AM MERCHANDISING COORDINATOR us Jovan Espana MD LAB BLOOD ORDERABLES Final Res ult [facility] ([place]) 1 [facility] [employer] [place] [employer] [place] [place] [address] * Lipase (10/07/2024 11:14 AM MERCHANDISING COORDINATOR) Lipase 13 10 - 99 Units/L Blood (Blood, Venous) 10/07/2024 11:14 AM MERCHANDISING COORDINATOR 10/07/2024 11:17 AM MERCHANDISING COORDINATOR us Jovan Espana MD LAB BLOOD ORDERABLES Final Res ult [facility] ([place]) 1 [facility] [place] [address] * Comprehensive metabolic panel (10/07/2024 11:14 AM MERCHANDISING COORDINATOR) Sodium 137 135 - 145 mmol/L Potassium, [...] ([place]) Blood (Blood, Venous) 10/07/2024 11:14 AM MERCHANDISING COORDINATOR 10/07/2024 11:17 AM MERCHANDISING COORDINATOR Jovan Espana MD LAB BLOOD ORDERABLES Final Res ult [facility] ([place]) 1 [facility] [place] [address] * POCT hCG, urine (10/07/2024 11:10 AM MERCHANDISING COORDINATOR) HCG, ur, POC Negative Negative Lot Number [id number] QC Backgroud Clear Acceptable QC Control Line Acceptable Urine 10/07/2024 11:1 0 AM MERCHANDISING COORDINATOR Jovan Espana MD POINT OF CARE TEST ORDERABLES Final Result * (ABNORMAL) Urinalysis reflex to microscopic and culture Urine (10/07/2024 11:08 AM MERCHANDISING COORDINATOR) Color, ur Yellow Yellow Clarity, ur Clear Clear [facility] ([place]) Specific gravity, ur 1.028 1.003 - 1.030 [...] tendency for uric acid stone formation. Source: [facility] [employer] Current Interpretive Data was last revised on 2017 Protein, ur ql 1+(A) Negative [facility] ([place]) Glucose, ur ql Negative Negative [facility] ([place]) Ketones, ur Negative Negative [facility] ([place]) Bilirubin, ur Negative Negative [facility] ([place]) Blood, ur 3+(A) Negative [facility] ([place]) Urobilinogen, ur <2.0 <2.0 mg/dL [facility] ([place]) Nitrite, ur Negative Negative [facility] ([place]) Leukocyte esterase, ur Negative Negative [facility] ([place]) UA reflex comment Reflex to microscopic UA will be performed. [facility] ([place]) Urine 10/07/2024 11:0 8 AM MERCHANDISING COORDINATOR 10/07/2024 11:11 AM MERCHANDISING COORDINATOR us Jovan Espana MD LAB MICROBIOLOGY - GENERAL ORD ERABLES Final Result Performing Organization Address [facility] Co de Phone Number [facility] ([place]) 1 [facility] [place] [address] * (ABNORMAL) Urinalysis, microscopic only (10/07/2024 11:08 AM MERCHANDISING COORDINATOR) WBC, ur 0-5 0 - 5 /HPF RBC, ur >50(A) 0 - 2 /HPF [facility] ([place]) Epithelial cells, squamous, ur 1-5 0 - 5 /HPF [facility] ([place]) Mucous, ur Present(A) [facility] ([place]) Culture Reflex Comment Reflex conditions for urine culture (WBC >10) not met. [facility] ([place]) Urine 10/07/2024 11:0 8 AM MERCHANDISING COORDINATOR 10/07/2024 11:11 AM MERCHANDISING COORDINATOR us Boris Doan MD LAB URINE ORDERABLE S Final Result Performing Organization Address [facility] de Phone Number [facility] ([place]) 1 [facility] [place] [address] from Last 3 Months Insurance [facility] OPEN ACCESS [employer] ANTHEM ACCESS CHOICE [employer] [place] Care Teams Leather Finisher Relationship Specialty Start Date End Date Ric Caraballo MD [address] [facility] [address] [place] [address] PCP - General Family Medicine 04/07/24
== END 2024-10-15 13:18 | disposition home or self-care (01) ==
PROVIDERS: PCP Family Medicine; Visit Provider Urology
DX: R14.0 Abdominal distension (gaseous) (principal); K56.41 Fecal impaction; N20.1 Calculus of ureter
CPT/HCPCS: 74018

== ENCOUNTER 2024-10-18 08:36 | Outpatient (CLI) | payer OTHER, SELFPAY | END 2024-10-18 08:37 | disposition home or self-care (01) | PROVIDERS: PCP Family Medicine; Visit Provider Urology | DX: N20.0 Calculus of kidney (principal) | CPT/HCPCS: 74018 ==

== ENCOUNTER 2024-10-18 12:37 | Emergency (ER) | payer OTHER, SELFPAY ==
[2024-10-18 12:48] VITALS: BP 129/79; PULSE 96; RESP 18; TEMP 36.7; O2SAT 99
[2024-10-18 13:19] LABS: EDUAAPPEAR Clear; EDUABILI Negative (Negative); EDUABLOOD 1+ (Negative); EDUACOLOR1 Light/Pale; EDUAGLUCOSE Negative (Negative); EDUAKETONE Negative (Negative); EDUALEUKO Negative (Negative); EDUANITRATE Negative (Negative); EDUAPROTEIN Negative (Negative); EDUAUROBILI 0.2
--- NOTE | 2024-10-18 13:49 | ED.FEMALEGU ---
HPI - Female Genitourinary General Chief complaint: Urogenital-Female Stated complaint: poss uti Time Seen by Provider: 10/18/24 13:49 Source: patient and RN notes reviewed Mode of arrival: ambulatory Limitations: no limitations History of Present Illness HPI Narrative: 19-year-old female presented for complaint of burning with urination, frequency, and vaginal itching. She states she is concerned for UTI because she passed a kidney stone 2 days ago. Continues to have mild left flank pain. She had a repeat x-ray with her urologist this morning and was told stone is. They would not treat for UTI today. Denies hematuria, nausea, vomiting, abdominal pain, constipation, diarrhea, fevers or chills. Denies concern for or STD. Related Data Home Medications ?Medication ?Instructions ?Recorded ?Confirmed ?Last Taken ?Type cetirizine 10 mg capsule 10 mg PO DAILY 10/18/24 10/18/24 Unknown History Allergies Allergy/AdvReac Type Severity Reaction Status Date / Time amoxicillin Allergy Unknown Rash Verified 10/18/24 13:14 Review of Systems Review of Systems: CONSTITUTIONAL: Denies body aches, fever, chills, or sweats. CARDIOVASCULAR: Denies chest pain, palpitations, or edema. RESPIRATORY: Denies cough or dyspnea. GASTROINTESTINAL: Denies abdominal pain, nausea, vomiting, or diarrhea. GENITOURINARY: Reports dysuria, frequency, itching. denies urgency, hematuria SKIN: Denies rash, itching, or wounds. MUSCULOSKELETAL: Denies back pain or myalgia. PMFSH Past Medical History Medical History Elevated fecal calprotectin Fatigue Abdominal pain Change in bowel habits Nausea and vomiting Viral URI Surgical History Surgical History No pertinent past surgical history Family History Family History Mother Hypertension Social History Social History Smoking status: Never smoker Second hand tobacco smoke exposure: No Alcohol intake: never Substance use: never Substance use type: does not use Living arrangements: with family Occupation/Education: student Gender identity (if verbalized by the patient): Female Spiritual care concerns: No Comments At time of signature, I have reviewed and agree with nursing past medical, surgical, social and family history unless otherwise noted. Please see nursing chart for further information. There is no relevant family history pertinent to the presenting complaint Exam Narrative: GENERAL: Well-appearing ENT: Mucous membranes pink and moist. CHEST: No respiratory distress. Clear to auscultation. HEART: Regular rate and rhythm. ABDOMEN: Soft, nontender, nondistended, normal active bowel sounds. No CVA tenderness SKIN: Warm, dry, no rash. NEURO: No focal deficits. Alert and oriented x3. Gait steady. PSYCH: Normal affect. No signs of depression or anxiety. Course Course Emergency Course: Patient is aware of diagnosis, understands and agrees to treatment plan. Anticipatory guidance given. Patient agrees to follow-up as directed and is aware of reasons to seek care at the emergency department. Portions of this record may have been created with voice recognition software Level of Care: Express Care Visit Vital Signs Vital signs: Vital Signs Temperature 98.0 F 10/18/24 12:48 Pulse Rate 96 10/18/24 12:48 Respiratory Rate 18 10/18/24 12:48 Blood Pressure 129/79 10/18/24 12:48 Pulse Oximetry 99 10/18/24 12:48 Oxygen Delivery Room Air 10/18/24 12:48 Temperature 98.0 F 10/18/24 12:48 Pulse Rate 96 10/18/24 12:48 Respiratory Rate 18 10/18/24 12:48 Blood Pressure 129/79 10/18/24 12:48 Pulse Oximetry 99 10/18/24 12:48 Oxygen Delivery Room Air 10/18/24 12:48 Reviewed MDM - Female Genitourinary MDM Narrative Medical decision making narrative: Discussed physical exam findings. Will culture urine Advised supportive measures and signs/symptoms to go to the ER. Pt is appropriate for outpt treatment and f/u. Differential Diagnosis Differential diagnosis: Likely urinary tract infection, vaginitis and other Lab Data Labs: Lab Results 10/18/24 Range/Units 13:00 POC Urine Color Light/pale POC Urine Clarity Clear POC Urine pH 7.0 POC Ur Specif [place] 1.010 POC Urine Protein Negative (Negative) POC Ur Glucose (UA) Negative (Negative) POC Urine Ketones Negative (Negative) POC Urine Blood 1+ (Negative) POC Urine Nitrite Negative (Negative) POC Urine Bilirubin Negative (Negative) POC Urine Urobilinogen 0.2 POC U Leukocyte Esteras Negative (Negative) Discharge Plan Discharge Clinical Impression: Dysuria Patient Disposition: Home, Self-Care Condition: Stable Instructions: Antibiotic Form, Urinary Tract Infection in Women (ED) Additional Instructions: Take the antibiotic as prescribed The urine will be sent of for a culture to identify what type of bacteria is causing your infection. If the culture shows that the antibiotic will not get rid of your infection, you will be notified and a new antibiotic will be called in for you. Increase water intake you will need to follow up with your PCP, call to schedule an appointment. Go to the ER for any worsening symptoms or concerns Patient Language: German Prescriptions: New nitrofurantoin monohyd/m-cryst [Macrobid] 100 mg capsule 100 mg PO Q12H 5 Days Qty: 10 0RF Rx Instructions: must administer with a meal/food No Action cetirizine 10 mg capsule 10 mg PO DAILY omeprazole 40 mg capsule,delayed release(DR/EC) 40 mg PO DAILY 30 Days Qty: 30 2RF Follow-up/Referrals: Ric Caraballo MD [Primary Care Provider] - Stand Alone Forms: Work/School Release IP Time of Disposition: 13:54
== END 2024-10-18 13:55 | disposition home or self-care (01) ==
PROVIDERS: Emergency Provider Nurse Practitioner Family; PCP Family Medicine
DX: R30.0 Dysuria (principal)
CPT/HCPCS: 81003; 87086; 99213; G0463